=== PATIENT | male | born 1935 | race Caucasian/White ===

== ENCOUNTER 2019-05-04 13:05 | Inpatient (IN) | payer MEDICARE ==
[~2019-05-04] VITALS: Ht 170.2 cm; Wt 88.1 kg
--- NOTE | 2019-05-04 15:45 | NUR ---
Returned from CT at this time.
[2019-05-04] MEDS ORDERED: piperacillin/tazo 3.375gm/50ml 50 ML IV ONE (16:25)
[2019-05-04 17:22] LABS: BASOPHILS # (AUTO) 0.1 X10'3 (0-0.2); BASOPHILS % (AUTO) 0.6 % (0-1); EOSINOPHILS % (AUTO) 0.1 % (0-6); HEMATOCRIT 34.7 % (42.0-52.0); HEMOGLOBIN 10.8 g/dl (14.0-17.9); LYMPHOCYTES # (AUTO) 0.8 X10'3 (1.1-4.8); LYMPHOCYTES % (AUTO) 5.5 % (21-51); MEAN CORPUSCULAR HEMOGLOBIN 23.6 PG (27.0-31.0); MEAN PLATELET VOLUME 8.7 FL (7.4-10.4); MONOCYTES # (AUTO) 0.9 X10'3 (0-0.9); MONOCYTES % (AUTO) 6.7 % (2-12); NEUTROPHILS # (AUTO) 11.9 X10'3 (1.8-7.7); NEUTROPHILS % (AUTO) 87.1 % (42-75); PLATELET COUNT 373 X10'3 (140-440); RED BLOOD COUNT 4.56 X10'6 (4.70-6.10); RED CELL DISTRIBUTION WIDTH 18.3 % (11.5-14.5); WHITE BLOOD COUNT 13.7 X10'3 (4.5-11.0)
[2019-05-04 17:31] LABS: PARTIAL THROMBOPLASTIN TIME 27 SECONDS (22-32)
[2019-05-04 17:38] LABS: ALANINE AMINOTRANSFERASE 15 U/L (12-78); ALBUMIN 1.8 G/DL (3.4-5.0); ALBUMIN/GLOBULIN RATIO 0.4 (1.1-1.5); ALKALINE PHOSPHATASE 105 IU/L (46-116); ANION GAP 8 (8-16); ASPARTATE AMINO TRANSFERASE 12 U/L (10-37); BILIRUBIN,TOTAL 0.5 MG/DL (0.1-1.0); BLOOD UREA NITROGEN 18 MG/DL (7-18); CALCIUM 8.3 MG/DL (8.5-10.1); CHLORIDE 105 MMOL/L (99-107); CREATININE 1.06 MG/DL (0.60-1.10); GLUCOSE 116 MG/DL (70-104); POTASSIUM 4.8 MMOL/L (3.5-5.1); SODIUM 138 MMOL/L (135-145); TOTAL CARBON DIOXIDE 25.4 MMOL/L (24-32); TOTAL PROTEIN 6.1 G/DL (6.4-8.2); eGFR 67 ML/MIN
[2019-05-04] MEDS ORDERED: magnesium Cl slow-release 64mg tablet PO PRN (17:55)
[2019-05-04] MEDS ORDERED: magnesium 4gm in 100ml NS 100 ML IV PRN (17:55)
[2019-05-04] MEDS ORDERED: HYDROcodone/acetaminophen 10/325mg tab PO PRN (17:55)
[2019-05-04] MEDS ORDERED: metoclopramide 5 mg/ml inj IV PRN (17:55)
[2019-05-04] MEDS ORDERED: HYDROmorphone inj. 0.5 MG/0.5 ML DISP.SYRIN IV PRN (17:55)
[2019-05-04] MEDS ORDERED: magnesium 2GM in 50ml NS 50 ML IV PRN (17:55)
[2019-05-04] MEDS ORDERED: diphenhydrAMINE 50 mg/ml inj IV PRN (17:55)
[2019-05-04] MEDS ORDERED: HYDROmorphone 1 mg/ml syringe IV PRN (17:55)
[2019-05-04] MEDS ORDERED: diphenhydrAMINE 25mg capsule PO PRN (17:55)
[2019-05-04] MEDS ORDERED: potassium Cl 20 mEq SR tablet PO PRN ×2 (17:55)
[2019-05-04] MEDS ORDERED: magnesium hydroxide 30ml (MOM) UD suspension PO PRN (17:55)
[2019-05-04] MEDS ORDERED: potassium CL 10mEq/100ml bag 100 ML IV PRN ×2 (17:55)
[2019-05-04] MEDS ORDERED: HYDROcodone/acetaminophen 5mg/325mg tablet PO PRN (17:55)
[2019-05-04] MEDS ORDERED: acetaminophen 325mg tablet PO PRN ×2 (17:55)
[2019-05-04] MEDS ORDERED: bisacodyl 10mg suppository rectal RC PRN (17:55)
[2019-05-04 18:13] LABS: HYPOCHROMASIA 1+; PLATELET ESTIMATE NORMAL; POLYCHROMASIA FEW
[2019-05-04 18:14] LABS: ANISOCYTOSIS 2+; ELLIPTOCYTES FEW; MICROCYTOSIS 1+; TEAR DROP CELLS FEW
[2019-05-04] MEDS: normal saline 1000ml 1,000 ML IV SCH (18:29)
--- NOTE | 2019-05-04 19:35 | NUR ---
Received report from Gilbert DUMONT. Patient to follow shortly
--- NOTE | 2019-05-04 19:43 | NUR ---
Patient arrived to floor via gurney accompanied by family. Transferred over to bed and vital signs initiated.
[2019-05-04 19:45] VITALS: BP 131/96
[2019-05-04] MEDS ORDERED: SPIR25TA5 PO (21:02)
[2019-05-04] MEDS ORDERED: RANI150T8 PO (21:02)
[2019-05-04] MEDS ORDERED: PRED10TA23 PO (21:02)
[2019-05-04] MEDS ORDERED: VALS160T30 PO (21:02)
[2019-05-04] MEDS ORDERED: POTA10TA19 PO (21:02)
[2019-05-04] MEDS ORDERED: FLO0.4C PO (21:02)
[2019-05-04] MEDS ORDERED: TRAM50TA2 PO ×2 (21:02→23:05)
[2019-05-04] MEDS ORDERED: METF500T PO (21:02)
[2019-05-04] MEDS ORDERED: BACL10TA PO (21:02)
[2019-05-04] MEDS ORDERED: lidocaine 5% patch TD (21:39)
[2019-05-04] MEDS ORDERED: baclofen 10mg tablet PO ONE (23:10)
[2019-05-04] MEDS ORDERED: LIDOcaine 5% patch TP SCH (23:10)
[2019-05-04] MEDS ORDERED: naproxen sodium 220mg tablet PO PRN (23:10)
[2019-05-04] MEDS ORDERED: traMADol 50MG tablet PO ONE (23:10)
[2019-05-04] MEDS: piperacillin/tazo 3.375gm/50ml 50 ML IV SCH (23:51)
[2019-05-05] VITALS: BP 150/90
[2019-05-05] MEDS: normal saline 1000ml 1,000 ML IV SCH ×2 (02:42→15:07)
[2019-05-05 05:08] LABS: BASOPHILS % (AUTO) 0.3 % (0-1); EOSINOPHILS # (AUTO) 0.1 X10'3 (0-0.9); EOSINOPHILS % (AUTO) 0.9 % (0-6); HEMATOCRIT 33.8 % (42.0-52.0); HEMOGLOBIN 10.5 g/dl (14.0-17.9); LYMPHOCYTES # (AUTO) 0.8 X10'3 (1.1-4.8); MEAN CORPUSCULAR HEMOGLOBIN 23.5 PG (27.0-31.0); MEAN CORPUSCULAR VOLUME 75.9 FL (78-98); MEAN PLATELET VOLUME 8.7 FL (7.4-10.4); MONOCYTES # (AUTO) 1.2 X10'3 (0-0.9); MONOCYTES % (AUTO) 11.1 % (2-12); NEUTROPHILS % (AUTO) 80.7 % (42-75); PLATELET COUNT 362 X10'3 (140-440); RED BLOOD COUNT 4.45 X10'6 (4.70-6.10); RED CELL DISTRIBUTION WIDTH 18.5 % (11.5-14.5); WHITE BLOOD COUNT 11.2 X10'3 (4.5-11.0)
[2019-05-05 05:43] LABS: ALANINE AMINOTRANSFERASE 13 U/L (12-78); ALBUMIN 1.7 G/DL (3.4-5.0); ALBUMIN/GLOBULIN RATIO 0.4 (1.1-1.5); ALKALINE PHOSPHATASE 90 IU/L (46-116); ANION GAP 6 (8-16); ASPARTATE AMINO TRANSFERASE 11 U/L (10-37); BILIRUBIN,TOTAL 0.6 MG/DL (0.1-1.0); BLOOD UREA NITROGEN 15 MG/DL (7-18); BUN/CREATININE RATIO 15.6 (5.4-32.0); CALCIUM 8.1 MG/DL (8.5-10.1); CHLORIDE 107 MMOL/L (99-107); CREATININE 0.96 MG/DL (0.60-1.10); GLUCOSE 72 MG/DL (70-104); MAGNESIUM 1.6 MG/DL (1.5-2.4); POTASSIUM 4.1 MMOL/L (3.5-5.1); SODIUM 140 MMOL/L (135-145); TOTAL CARBON DIOXIDE 27.2 MMOL/L (24-32); TOTAL PROTEIN 5.7 G/DL (6.4-8.2); eGFR 75 ML/MIN
[2019-05-05 07:00] VITALS: BP 125/80
--- NOTE | 2019-05-05 07:04 | NUR ---
Problems reprioritized. Patient report given, questions answered & plan of care reviewed with Natali DUMONT and Pat DUMONT.
[2019-05-05] MEDS: K and/or MAG REPLACEMENT MC SCH (08:00)
[2019-05-05] MEDS: piperacillin/tazo 3.375gm/50ml 50 ML IV SCH ×2 (08:45→15:08)
[2019-05-05] MEDS: baclofen 10mg tablet PO SCH ×3 (08:46→20:21)
[2019-05-05 11:00] VITALS: BP 122/75
[2019-05-05] MEDS ORDERED: dextrose 50%-water 50ml dispensing syringe IV PRN ×2 (11:30)
[2019-05-05] MEDS ORDERED: dextrose ORAL solution 15 GM/59 ML bottle PO PRN ×2 (11:30)
[2019-05-05] MEDS ORDERED: glucagon, human recombinant 1mg kit SUBCUT PRN (11:30)
[2019-05-05] MEDS ORDERED: MESSAGE TO PHARMACY PO ONE (11:30)
[2019-05-05] MEDS: polyethylene glycol 3350 17gm powd pack PO SCH ×2 (12:27→20:20)
[2019-05-05] MEDS: potassium chloride 10mEq ER tablet PO SCH (12:28)
[2019-05-05] MEDS: docusate sod 100mg capsule PO SCH ×2 (12:28→20:19)
[2019-05-05] MEDS: pantoprazole 40mg Tablet.DR PO SCH (12:28)
[2019-05-05] MEDS: magnesium hydroxide 30ml (MOM) UD suspension PO SCH ×2 (12:29→20:19)
[2019-05-05] MEDS: spironolactone 25 MG tablet PO SCH (12:29)
--- NOTE | 2019-05-05 12:49 | NUR ---
Patient blood glucose level 70 before lunch, patient requested apple juice as intervention, will continue to monitor.
[2019-05-05 13:04] LABS: HEMOGLOBIN A1C 6.8 % (4.5-6.2)
[2019-05-05] MEDS ORDERED: NAPR220C15 PO (14:00)
[2019-05-05] MEDS ORDERED: OMEP20TA5 PO (14:00)
[2019-05-05] MEDS ORDERED: LIDOCAINE 5% PATCH TP (14:00)
[2019-05-05] MEDS ORDERED: TRAM50TA2 PO (14:02)
[2019-05-05] MEDS ORDERED: LACT1CAP65 PO (14:03)
--- NOTE | 2019-05-05 15:15 | NUR ---
Malnutrition consult: Pt and SO seen at bedside. 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 Diet has just been advanced to clear liquid from NPO, pending documentation of PO intake. Pt is unsure of what his UBW is and states he has lost greater than 15 lbs in an unknown time frame. No documented wt hx in EMR. Pt with mild edema however no decrease in muscle strength or visible fat/muscle wasting. Pt currently does not meet criteria for malnutrition at this time. Will continue to follow. Addendum: 05/05/19 at [address] Amended: Links added.
--- NOTE | 2019-05-05 18:17 | NUR ---
Problems reprioritized. Patient report given, questions answered & plan of care reviewed with TIM Braxton.
--- NOTE | 2019-05-05 18:30 | NUR ---
Patient in room [facility] 346. I have received report from Pat DUMONT and had the opportunity to ask questions and assume patient care.
[2019-05-05 20:00] VITALS: BP 118/72
[2019-05-05] MEDS: LIDOcaine 5% patch TP SCH (20:20)
[2019-05-05] MEDS: famotidine 20mg tablet PO SCH (20:21)
[2019-05-05] MEDS: losartan 50mg tablet PO SCH (20:24)
[2019-05-05] MEDS: insulin glargine (Lantus) pen - multi-dose SQ SCH (21:00)
[2019-05-06] VITALS: BP 139/76
[2019-05-06] MEDS: normal saline 1000ml 1,000 ML IV SCH ×2 (00:05→10:41)
[2019-05-06] MEDS: piperacillin/tazo 3.375gm/50ml 50 ML IV SCH ×3 (00:05→15:33)
[2019-05-06 05:17] LABS: BASOPHILS # (AUTO) 0.2 X10'3 (0-0.2); BASOPHILS % (AUTO) 1.4 % (0-1); EOSINOPHILS # (AUTO) 0.3 X10'3 (0-0.9); EOSINOPHILS % (AUTO) 2.3 % (0-6); HEMATOCRIT 36.5 % (42.0-52.0); HEMOGLOBIN 11.4 g/dl (14.0-17.9); LYMPHOCYTES # (AUTO) 1.3 X10'3 (1.1-4.8); LYMPHOCYTES % (AUTO) 11.1 % (21-51); MEAN CORPUSCULAR HEMOGLOBIN 23.4 PG (27.0-31.0); MEAN CORPUSCULAR HGB CONC 31.3 g/dL (33.0-36.5); MEAN CORPUSCULAR VOLUME 74.8 FL (78-98); MEAN PLATELET VOLUME 8.7 FL (7.4-10.4); MONOCYTES # (AUTO) 1.3 X10'3 (0-0.9); MONOCYTES % (AUTO) 10.9 % (2-12); NEUTROPHILS # (AUTO) 8.9 X10'3 (1.8-7.7); NEUTROPHILS % (AUTO) 74.3 % (42-75); PLATELET COUNT 386 X10'3 (140-440); RED BLOOD COUNT 4.88 X10'6 (4.70-6.10); RED CELL DISTRIBUTION WIDTH 18.1 % (11.5-14.5); WHITE BLOOD COUNT 11.9 X10'3 (4.5-11.0)
[2019-05-06 05:35] LABS: ALANINE AMINOTRANSFERASE 12 U/L (12-78); ALBUMIN 1.8 G/DL (3.4-5.0); ALBUMIN/GLOBULIN RATIO 0.4 (1.1-1.5); ALKALINE PHOSPHATASE 93 IU/L (46-116); ANION GAP 10 (8-16); ASPARTATE AMINO TRANSFERASE 12 U/L (10-37); BILIRUBIN,TOTAL 0.6 MG/DL (0.1-1.0); BLOOD UREA NITROGEN 11 MG/DL (7-18); BUN/CREATININE RATIO 10.8 (5.4-32.0); CALCIUM 7.9 MG/DL (8.5-10.1); CHLORIDE 106 MMOL/L (99-107); CREATININE 1.02 MG/DL (0.60-1.10); GLUCOSE 86 MG/DL (70-104); MAGNESIUM 1.8 MG/DL (1.5-2.4); POTASSIUM 4.4 MMOL/L (3.5-5.1); SODIUM 140 MMOL/L (135-145); TOTAL CARBON DIOXIDE 24.2 MMOL/L (24-32); TOTAL PROTEIN 6.1 G/DL (6.4-8.2); eGFR 70 ML/MIN
--- NOTE | 2019-05-06 06:30 | NUR ---
Problems reprioritized. Patient report given, questions answered & plan of care reviewed with Brianna Pandey.
[2019-05-06 08:00] VITALS: BP 155/77
[2019-05-06] MEDS: K and/or MAG REPLACEMENT MC SCH (08:00)
[2019-05-06] MEDS: pantoprazole 40mg Tablet.DR PO SCH (08:44)
[2019-05-06] MEDS: spironolactone 25 MG tablet PO SCH (08:44)
[2019-05-06] MEDS: docusate sod 100mg capsule PO SCH ×2 (08:45→20:00)
[2019-05-06] MEDS: tamsulosin 0.4mg capsule PO SCH (08:45)
[2019-05-06] MEDS: predniSONE 20 mg tablet PO SCH (08:45)
[2019-05-06] MEDS: potassium chloride 10mEq ER tablet PO SCH (08:45)
[2019-05-06] MEDS: baclofen 10mg tablet PO SCH ×3 (08:45→20:28)
[2019-05-06] MEDS: magnesium hydroxide 30ml (MOM) UD suspension PO SCH ×2 (08:46→20:00)
[2019-05-06 09:00] VITALS: BP 103/71
[2019-05-06] MEDS ORDERED: metoclopramide 5 mg/ml inj IV ONE (10:10)
[2019-05-06] MEDS ORDERED: magnesium citrate 296ml oral solution PO ONE (10:10)
[2019-05-06 12:00] VITALS: BP 126/76
--- NOTE | 2019-05-06 13:29 | NUR ---
pt refused mag citrate fro now. the reglan is working well. non adminned and will recheck in a few hours
[2019-05-06 13:54] VITALS: BP 126/76
[2019-05-06] MEDS: furosemide 40mg/4ml inj IV SCH (14:30)
--- NOTE | 2019-05-06 15:40 | NUR ---
DR GUZMAN ORDERED STRICT I&O'S ON THIS PT. EDUCATED PT ON THE NEED FOR THIS ORDER. PATIENT CONTINUES TO REFUSE TO USE A URINAL OR A HAT.
--- NOTE | 2019-05-06 18:23 | NUR ---
GAVE REPORT TO RHIANNON DUMONT
[2019-05-06 19:30] VITALS: BP 108/66
--- NOTE | 2019-05-06 19:30 | NUR ---
pt wrapped up in blankets stating he has swelling in his lower legs, which hasn't changed; pt sates he does not want to be uncovered to have legs checked Addendum: 05/07/19 at 0229 by Radha Miller RN Amended: Links added.
--- NOTE | 2019-05-06 19:30 | NUR ---
pt encouraged to use urinal so output could be monitored; states he is voiding in good amounts & does not want to use the urinal due to the difficulty in using it Addendum: 05/07/19 at 0229 by Radha Miller RN Amended: Links added.
--- NOTE | 2019-05-06 19:30 | NUR ---
pt states he uses o2 at 2 liter, NC "off & on" Addendum: 05/07/19 at 0229 by Radha Miller RN Amended: Links added.
[2019-05-06] MEDS: famotidine 20mg tablet PO SCH (20:26)
[2019-05-06] MEDS: LIDOcaine 5% patch TP SCH (20:26)
[2019-05-06] MEDS: lactobacillus rhamnosus 10,000 MMU CELLS/CAPSULE PO SCH (20:27)
[2019-05-06] MEDS: losartan 50mg tablet PO SCH (20:27)
[2019-05-06] MEDS: diatr meglu/diatrizoate 30ml oral sol.-(3 dose) bottle PO SCH (20:28)
[2019-05-06] MEDS: polyethylene glycol 3350 17gm powd pack PO SCH (20:31)
[2019-05-06] MEDS: insulin glargine (Lantus) pen - multi-dose SQ SCH (21:03)
[2019-05-06] MEDS: Melatonin 3mg tablet PO PRN (22:45)
[2019-05-07] VITALS (16 sets, daily range): BP systolic 126–188; BP diastolic 69–145
[2019-05-07] MEDS: piperacillin/tazo 3.375gm/50ml 50 ML IV SCH ×3 (00:23→16:00)
[2019-05-07 04:44] LABS: BASOPHILS # (AUTO) 0.1 X10'3 (0-0.2); EOSINOPHILS # (AUTO) 0.1 X10'3 (0-0.9); EOSINOPHILS % (AUTO) 0.9 % (0-6); HEMOGLOBIN 11.5 g/dl (14.0-17.9); LYMPHOCYTES # (AUTO) 1.5 X10'3 (1.1-4.8); LYMPHOCYTES % (AUTO) 10.2 % (21-51); MEAN CORPUSCULAR HEMOGLOBIN 23.2 PG (27.0-31.0); MEAN CORPUSCULAR HGB CONC 31.1 g/dL (33.0-36.5); MEAN CORPUSCULAR VOLUME 74.6 FL (78-98); MEAN PLATELET VOLUME 8.5 FL (7.4-10.4); MONOCYTES # (AUTO) 1.3 X10'3 (0-0.9); MONOCYTES % (AUTO) 8.9 % (2-12); NEUTROPHILS # (AUTO) 11.6 X10'3 (1.8-7.7); PLATELET COUNT 427 X10'3 (140-440); RED BLOOD COUNT 4.96 X10'6 (4.70-6.10); RED CELL DISTRIBUTION WIDTH 18.3 % (11.5-14.5); WHITE BLOOD COUNT 14.7 X10'3 (4.5-11.0)
[2019-05-07 04:50] LABS: ALANINE AMINOTRANSFERASE 13 U/L (12-78); ALBUMIN/GLOBULIN RATIO 0.4 (1.1-1.5); ALKALINE PHOSPHATASE 96 IU/L (46-116); ANION GAP 8 (8-16); ASPARTATE AMINO TRANSFERASE 11 U/L (10-37); BILIRUBIN,TOTAL 0.6 MG/DL (0.1-1.0); BLOOD UREA NITROGEN 12 MG/DL (7-18); BUN/CREATININE RATIO 9.7 (5.4-32.0); CALCIUM 8.8 MG/DL (8.5-10.1); CHLORIDE 107 MMOL/L (99-107); CREATININE 1.24 MG/DL (0.60-1.10); GLUCOSE 106 MG/DL (70-104); MAGNESIUM 2.2 MG/DL (1.5-2.4); POTASSIUM 4.1 MMOL/L (3.5-5.1); SODIUM 141 MMOL/L (135-145); TOTAL CARBON DIOXIDE 26.1 MMOL/L (24-32); TOTAL PROTEIN 6.5 G/DL (6.4-8.2); eGFR 56 ML/MIN
--- NOTE | 2019-05-07 06:53 | NUR ---
Patient in room [facility] 346. I have received report from PAT RN and had the opportunity to ask questions and assume patient care.
[2019-05-07] MEDS: diatr meglu/diatrizoate 30ml oral sol.-(3 dose) bottle PO SCH ×2 (07:59→10:04)
[2019-05-07] MEDS: docusate sod 100mg capsule PO SCH ×2 (08:00→20:00)
[2019-05-07] MEDS: potassium chloride 10mEq ER tablet PO SCH (08:00)
[2019-05-07] MEDS: baclofen 10mg tablet PO SCH ×3 (08:00→21:00)
[2019-05-07] MEDS: lactobacillus rhamnosus 10,000 MMU CELLS/CAPSULE PO SCH ×2 (08:00→20:00)
[2019-05-07] MEDS: pantoprazole 40mg Tablet.DR PO SCH (08:00)
[2019-05-07] MEDS: K and/or MAG REPLACEMENT MC SCH (08:00)
[2019-05-07] MEDS: tamsulosin 0.4mg capsule PO SCH (08:00)
[2019-05-07] MEDS: magnesium hydroxide 30ml (MOM) UD suspension PO SCH ×2 (08:01→22:29)
[2019-05-07] MEDS: predniSONE 20 mg tablet PO SCH (08:01)
[2019-05-07] MEDS: spironolactone 25 MG tablet PO SCH (08:01)
[2019-05-07] MEDS: furosemide 40mg/4ml inj IV SCH (08:02)
[2019-05-07] MEDS ORDERED: iohexol 300mg/ml 100ml inj. ONE (10:05)
[2019-05-07] MEDS: normal saline 1000ml 1,000 ML IV SCH (11:40)
--- NOTE | 2019-05-07 14:54 | NUR ---
Student documentation: I have reviewed all interventions, assessments performed and documented by Yesi IGLESIAS
[2019-05-07] MEDS ORDERED: clindamycin phosphate 150mg/ml inj. ONE (15:42)
[2019-05-07] MEDS ORDERED: gentamicin 40 MG/1 ML inj ONE (15:42)
[2019-05-07] MEDS ORDERED: LIDOcaine 1% (10mg/ml) 2ml vial ONE (16:19)
[2019-05-07] MEDS ORDERED: ringers solution, lacted 1,000 ML IV SCH (16:22)
[2019-05-07] MEDS ORDERED: ondansetron/PF 4mg/2ml inj IV PRN (16:25)
[2019-05-07] MEDS ORDERED: morphine 4 MG/ML inj SYRINge IV PRN ×2 (16:25)
[2019-05-07] MEDS ORDERED: proCHLORperazine 10 MG/2 ml inj IV PRN (16:25)
[2019-05-07] MEDS ORDERED: meperidine/PF 25mg/ml syringe IV PRN ×3 (16:25)
[2019-05-07] MEDS ORDERED: desflurane 240ml liquid inh. IH ONE (16:42)
[2019-05-07] MEDS ORDERED: neostigmine methylsulfate 1 MG/ML 10ml vial ONE (16:42)
[2019-05-07] MEDS ORDERED: glycopyrrolate 0.2mg/ml inj ONE (16:42)
[2019-05-07] MEDS ORDERED: midazolam 2 mg/2 ml injection ONE (16:49)
[2019-05-07] MEDS ORDERED: fentaNYL /PF 50mcg/ml 5ml ampule ONE (16:49)
--- NOTE | 2019-05-07 17:16 | NUR ---
Hourly checks and blood glucose monitoring deferred to community health nurse staff, patient was transported to surgery Addendum: 05/07/19 at 1718 by Yesi GO Amended: Links added.
[2019-05-07] MEDS ORDERED: LIDOcaine 2% (20mg/ml) 5ml vial ONE (18:02)
[2019-05-07] MEDS ORDERED: hydrocortisone sod succ/PF 100mg/2ml inj. ONE (18:02)
[2019-05-07] MEDS ORDERED: propofol inj 20 ML IV ONE (18:02)
[2019-05-07] MEDS ORDERED: rocuronium 10mg/ml inj IV ONE (18:02)
[2019-05-07] MEDS ORDERED: BUPIVAcaine/PF 2.5 mg/ml (0.25%) 30ml vial ONE (18:20)
[2019-05-07] MEDS ORDERED: BUPIVACAINE liposomal/PF 13.3 MG/ML vial IM ONE (18:21)
[2019-05-07] MEDS ORDERED: HYDROmorphone 1 mg/ml syringe IV PRN (18:45)
[2019-05-07] MEDS ORDERED: acetaminophen 1,000mg/100ml IV 100 ML IV ONE (19:00)
--- NOTE | 2019-05-07 19:12 | NUR ---
Received from OR via , accompanied by Anesthesiologist DR ACOSTA and report given by Anesthesiolgist.AWAKENS TO VOICE. VITALS STABLE. DRESSING DI. KARI PAIN. ABD SOFT. MATT WITH CLEAR URINE.
--- NOTE | 2019-05-07 19:40 | NUR ---
I have received report from Corey DUMONT, recovery room nurse and had the opportunity to ask questions and assume patient care. Awaiting PT arrival.
--- NOTE | 2019-05-07 19:42 | NUR ---
Report called to receiving nurse. Transferred via BED Belongings . Special Issues communicated to receiving nurse.AWAKE AND ORIENTED. VITALS STABLE. DRESSING DI STATES MIN DISCOMFORT. TO CICU RM 2011A AT THIS TIME.
[2019-05-07] MEDS: LIDOcaine 5% patch TP SCH (20:00)
--- NOTE | 2019-05-07 20:30 | NUR ---
PT arrived to via ICU bed. PT placed on bedside monitor. PT is receiving 3L O2 to NC, toelrating well, O2 sat >94%. PT has an Art line to RT radial, line zeroed and transduced to pressure tubing. PT has 20g PIV to LT forearm, with IVF infusing per MD orders. PT c/o pain, PRN Dilaudid given. PT has Drsg to Midline ABD and JUSTICE drain to RLQ. Drsgs are CDI. Rolle in place draining to gravity. Bed is locked and low. Call light is within reach. Will continue to monitor.
[2019-05-07] MEDS: hydrocortisone sod succ/PF 100mg/2ml inj. IV SCH (20:47)
[2019-05-07] MEDS: insulin glargine (Lantus) pen - multi-dose SQ SCH (21:00)
[2019-05-07] MEDS: famotidine 20mg tablet PO SCH (21:00)
[2019-05-07] MEDS: losartan 50mg tablet PO SCH (21:00)
[2019-05-07 22:02] LABS: BASOPHILS % (AUTO) 0.2 % (0-1); EOSINOPHILS % (AUTO) 0 % (0-6); HEMATOCRIT 37.4 % (42.0-52.0); HEMOGLOBIN 11.5 g/dl (14.0-17.9); LYMPHOCYTES # (AUTO) 0.3 X10'3 (1.1-4.8); LYMPHOCYTES % (AUTO) 2.2 % (21-51); MEAN CORPUSCULAR HEMOGLOBIN 23.4 PG (27.0-31.0); MEAN CORPUSCULAR HGB CONC 30.8 g/dL (33.0-36.5); MEAN PLATELET VOLUME 8.6 FL (7.4-10.4); MONOCYTES # (AUTO) 0.8 X10'3 (0-0.9); MONOCYTES % (AUTO) 5.1 % (2-12); NEUTROPHILS # (AUTO) 14.3 X10'3 (1.8-7.7); NEUTROPHILS % (AUTO) 92.5 % (42-75); PLATELET COUNT 375 X10'3 (140-440); RED BLOOD COUNT 4.93 X10'6 (4.70-6.10); RED CELL DISTRIBUTION WIDTH 18.4 % (11.5-14.5); WHITE BLOOD COUNT 15.4 X10'3 (4.5-11.0)
[2019-05-07 22:13] LABS: PARTIAL THROMBOPLASTIN TIME 26 SECONDS (22-32)
[2019-05-07 22:19] LABS: ALANINE AMINOTRANSFERASE 13 U/L (12-78); ALBUMIN 1.8 G/DL (3.4-5.0); ALBUMIN/GLOBULIN RATIO 0.4 (1.1-1.5); ALKALINE PHOSPHATASE 89 IU/L (46-116); ANION GAP 6 (8-16); ASPARTATE AMINO TRANSFERASE 14 U/L (10-37); BILIRUBIN,TOTAL 0.6 MG/DL (0.1-1.0); BLOOD UREA NITROGEN 12 MG/DL (7-18); BUN/CREATININE RATIO 10.2 (5.4-32.0); CALCIUM 7.8 MG/DL (8.5-10.1); CHLORIDE 106 MMOL/L (99-107); CREATININE 1.18 MG/DL (0.60-1.10); GLUCOSE 179 MG/DL (70-104); POTASSIUM 4.1 MMOL/L (3.5-5.1); SODIUM 138 MMOL/L (135-145); TOTAL CARBON DIOXIDE 26.1 MMOL/L (24-32); eGFR 59 ML/MIN
[2019-05-07] MEDS ORDERED: hydrALAZINE 20mg/ml inj. IV PRN (22:20)
--- NOTE | 2019-05-07 22:30 | NUR ---
PT resting off and on, each time PT does wake up he states "Pain" repeatedly. Dr Mendoza in Unit and informed him. Received order for Dialudid CADD. Will get started when orders clear. Will continue to monitor.
[2019-05-07] MEDS ORDERED: CADD PCA waste documentation MC SCH (23:10)
[2019-05-07] MEDS ORDERED: naloxone 0.4 mg/ml inj IV PRN (23:10)
[2019-05-07] MEDS: HYDROmorphone/NS 1 mg/ml CADD 50 ML IV SCH (23:24)
[2019-05-08] VITALS (24 sets, daily range): BP systolic 95–177; BP diastolic 72–125
--- NOTE | 2019-05-08 00:10 | NUR ---
During hourly rounds nursing assessed PT ABD Drsg and found that it has been picked at by PT and was lifting off of skin. New Drsg placed using sterile technique. PT tolerated well. Will continue to monitor.
[2019-05-08] MEDS: piperacillin/tazo 3.375gm/50ml 50 ML IV SCH ×4 (00:11→23:48)
[2019-05-08] MEDS: dextrose 5%-lactated ringers 1,000 ML IV SCH ×3 (00:12→21:16)
[2019-05-08] MEDS: HYDROmorphone/NS 1 mg/ml CADD 50 ML IV SCH ×12 (01:00→23:00)
[2019-05-08] MEDS: hydrocortisone sod succ/PF 100mg/2ml inj. IV SCH ×4 (02:26→21:14)
--- NOTE | 2019-05-08 03:00 | NUR ---
PT has been resting comfortably with no s/s of distress noted at this time. VSS. Dilaudid CADD has been effective. Bed is locked and low. Call light is within reach. Will continue to monitor.
[2019-05-08] MEDS: ondansetron/PF 4mg/2ml inj IV PRN (03:13)
[2019-05-08 03:35] LABS: BASOPHILS % (AUTO) 0.1 % (0-1); EOSINOPHILS % (AUTO) 0 % (0-6); HEMATOCRIT 37.4 % (42.0-52.0); HEMOGLOBIN 11.3 g/dl (14.0-17.9); LYMPHOCYTES # (AUTO) 0.4 X10'3 (1.1-4.8); LYMPHOCYTES % (AUTO) 1.7 % (21-51); MEAN CORPUSCULAR HEMOGLOBIN 23.1 PG (27.0-31.0); MEAN CORPUSCULAR HGB CONC 30.3 g/dL (33.0-36.5); MEAN CORPUSCULAR VOLUME 76.2 FL (78-98); MEAN PLATELET VOLUME 8.7 FL (7.4-10.4); MONOCYTES # (AUTO) 0.7 X10'3 (0-0.9); MONOCYTES % (AUTO) 3.3 % (2-12); NEUTROPHILS # (AUTO) 19.2 X10'3 (1.8-7.7); NEUTROPHILS % (AUTO) 94.9 % (42-75); PLATELET COUNT 362 X10'3 (140-440); RED CELL DISTRIBUTION WIDTH 18.4 % (11.5-14.5); WHITE BLOOD COUNT 20.3 X10'3 (4.5-11.0)
[2019-05-08 03:49] LABS: ALANINE AMINOTRANSFERASE 14 U/L (12-78); ALBUMIN 1.8 G/DL (3.4-5.0); ALBUMIN/GLOBULIN RATIO 0.5 (1.1-1.5); ALKALINE PHOSPHATASE 82 IU/L (46-116); ANION GAP 10 (8-16); ASPARTATE AMINO TRANSFERASE 12 U/L (10-37); BILIRUBIN,TOTAL 0.5 MG/DL (0.1-1.0); BLOOD UREA NITROGEN 13 MG/DL (7-18); BUN/CREATININE RATIO 11.8 (5.4-32.0); CALCIUM 7.8 MG/DL (8.5-10.1); CHLORIDE 106 MMOL/L (99-107); GLUCOSE 206 MG/DL (70-104); MAGNESIUM 2.2 MG/DL (1.5-2.4); POTASSIUM 4.6 MMOL/L (3.5-5.1); SODIUM 142 MMOL/L (135-145); TOTAL CARBON DIOXIDE 25.8 MMOL/L (24-32); TOTAL PROTEIN 5.7 G/DL (6.4-8.2); eGFR 64 ML/MIN
--- NOTE | 2019-05-08 06:37 | NUR ---
Problems reprioritized. Patient report given, questions answered & plan of care reviewed with Mariana DUMONT.
[2019-05-08] MEDS: normal saline 1000ml 1,000 ML IV SCH ×2 (07:40→21:00)
[2019-05-08] MEDS: K and/or MAG REPLACEMENT MC SCH (07:44)
[2019-05-08] MEDS: potassium chloride 10mEq ER tablet PO SCH (08:00)
[2019-05-08] MEDS: tamsulosin 0.4mg capsule PO SCH (08:00)
[2019-05-08] MEDS: docusate sod 100mg capsule PO SCH ×2 (08:00→20:00)
[2019-05-08] MEDS: spironolactone 25 MG tablet PO SCH (08:00)
[2019-05-08] MEDS: baclofen 10mg tablet PO SCH ×3 (08:00→21:14)
[2019-05-08] MEDS: lactobacillus rhamnosus 10,000 MMU CELLS/CAPSULE PO SCH ×2 (08:00→21:14)
[2019-05-08] MEDS ORDERED: prednisone 10mg tablet PO SCH ×2 (08:00)
[2019-05-08] MEDS ORDERED: furosemide 40mg/4ml inj IV SCH (08:00)
[2019-05-08] MEDS: magnesium hydroxide 30ml (MOM) UD suspension PO SCH ×2 (08:00→20:00)
[2019-05-08] MEDS: furosemide 20 MG/2 ML vial IV SCH (09:05)
--- NOTE | 2019-05-08 13:00 | NUR ---
per vicenta at the bedside, patient is to stay in ICU and continue NPO except for ice chips. I told Trishat patient is not passing gas but otherwise vitals have been great and he is doing well.
[2019-05-08] MEDS: fluconazole/NS 400mg/200ml bag 200 ML IV SCH (13:56)
--- NOTE | 2019-05-08 16:00 | NUR ---
Initial assessment: Pt was admitted to the hospital with the complaints of abd pain and constipation for 6 days; with LBM previously 04/28 however received bowel care and now LBM 05/06. patient has a history of asbestosis with end-stage lung disease with a lung capacity of about 23-25%,HTN, hyperlipidemia, diverticulosis as well as prostate cancer status post proton beam therapy per H&P. Pt was intubated for exploratory laparotomy, drain of abd abscess, and small bowel resection; however per MD notes pt is now extubated, doing ok. Pt was previously on full liquid diet with po intake of 50-75%, now NPO with NG tube for suction. Rec diet advance to heart healthy/carb controlled as medically indicated with A1C of 6.8 and elevated BG likely r/t chronic steroid use with no hx DM. Will keep monitor. Recs: 1. Advance diet to carb controlled/heart healthy as medically indicated 2. Routine bowel care 3. Weekly wt Addendum: 05/08/19 at [address] Amended: Links added. Addendum: 05/08/19 at [address] I have reviewed and agree with note by Felling Machine Operator. Kelsie Dawson RD
[2019-05-08] MEDS: insulin Lispro (HumaLOG) vial - multi-dose SQ SCH (16:02)
--- NOTE | 2019-05-08 18:30 | NUR ---
Patient in room CICU 2010. I have received report from ALL DUMONT and had the opportunity to ask questions and assume patient care.
--- NOTE | 2019-05-08 18:50 | NUR ---
gave report to oncoming nurse and when we went to assess the patient together, patient was acting very anxious. I went to show oncoming nurse the midline dressing and patient had been obviously messing with it and it was loose and coming off even though I had checked it and it was secure 1 hour prior. Patient began accusing us of not answering his light and "lying to him" not understanding how the call light or pain button worked suddenly. I started to explain to him everything again and he began screaming "I WANT TO SEE THE DOCTOR!!!". Patient appears very accused and this is a very sudden change in condition. We have been laughing and chatting all day and he has been alert and oriented.
--- NOTE | 2019-05-08 19:05 | NUR ---
devulcanizer charger sent out page to Dr Mendoza. he called back, informed him of pt dramatic change in behavior and screaming that he wants to see the surgeon, tachycardic in 130s. Klely said to call the system administrator for this. stated that NG can come out and we can give him ice chips, popsicles as he allows.
[2019-05-08] MEDS: LIDOcaine 5% patch TP SCH (20:11)
[2019-05-08] MEDS: insulin glargine (Lantus) pen - multi-dose SQ SCH (20:59)
[2019-05-08] MEDS: losartan 50mg tablet PO SCH (21:14)
[2019-05-08] MEDS: famotidine 20mg tablet PO SCH (21:14)
--- NOTE | 2019-05-08 21:56 | NUR ---
pt is calm and back to normal after his coming to visit. HR back down to the 90s. he was cooperative with his nighttime meds after tolerating sips of water. pt is now sleeping after his bed bath routine
[2019-05-09] VITALS (14 sets, daily range): BP systolic 128–156; BP diastolic 78–102
[2019-05-09] MEDS: HYDROmorphone/NS 1 mg/ml CADD 50 ML IV SCH ×12 (01:00→23:00)
[2019-05-09] MEDS: hydrocortisone sod succ/PF 100mg/2ml inj. IV SCH ×3 (02:16→20:18)
[2019-05-09] MEDS: dextrose 5%-lactated ringers 1,000 ML IV SCH ×2 (04:20→09:30)
[2019-05-09 06:06] LABS: BASOPHILS % (AUTO) 0 % (0-1); EOSINOPHILS % (AUTO) 0 % (0-6); HEMATOCRIT 35.7 % (42.0-52.0); HEMOGLOBIN 11.1 g/dl (14.0-17.9); LYMPHOCYTES # (AUTO) 0.3 X10'3 (1.1-4.8); LYMPHOCYTES % (AUTO) 2.1 % (21-51); MEAN CORPUSCULAR HEMOGLOBIN 23.8 PG (27.0-31.0); MEAN CORPUSCULAR HGB CONC 31.2 g/dL (33.0-36.5); MEAN CORPUSCULAR VOLUME 76.2 FL (78-98); MEAN PLATELET VOLUME 8.7 FL (7.4-10.4); MONOCYTES # (AUTO) 0.6 X10'3 (0-0.9); NEUTROPHILS # (AUTO) 15.3 X10'3 (1.8-7.7); NEUTROPHILS % (AUTO) 93.9 % (42-75); PLATELET COUNT 347 X10'3 (140-440); RED BLOOD COUNT 4.69 X10'6 (4.70-6.10); RED CELL DISTRIBUTION WIDTH 18.6 % (11.5-14.5); WHITE BLOOD COUNT 16.3 X10'3 (4.5-11.0)
[2019-05-09 06:19] LABS: ALANINE AMINOTRANSFERASE 12 U/L (12-78); ALBUMIN 1.7 G/DL (3.4-5.0); ALBUMIN/GLOBULIN RATIO 0.4 (1.1-1.5); ALKALINE PHOSPHATASE 74 IU/L (46-116); ANION GAP 4 (8-16); ASPARTATE AMINO TRANSFERASE 21 U/L (10-37); BILIRUBIN,TOTAL 0.5 MG/DL (0.1-1.0); BLOOD UREA NITROGEN 13 MG/DL (7-18); BUN/CREATININE RATIO 14.3 (5.4-32.0); CALCIUM 8.2 MG/DL (8.5-10.1); CHLORIDE 106 MMOL/L (99-107); CREATININE 0.91 MG/DL (0.60-1.10); GLUCOSE 156 MG/DL (70-104); POTASSIUM 4.2 MMOL/L (3.5-5.1); SODIUM 140 MMOL/L (135-145); TOTAL CARBON DIOXIDE 29.8 MMOL/L (24-32); TOTAL PROTEIN 5.7 G/DL (6.4-8.2); eGFR 80 ML/MIN
--- NOTE | 2019-05-09 06:23 | NUR ---
Problems reprioritized. Patient report given, questions answered & plan of care reviewed with CASIE DUMONT.
[2019-05-09 07:23] LABS: ANISOCYTOSIS 2+; PLATELET ESTIMATE NORMAL
[2019-05-09 07:24] LABS: BURR CELLS 1+; ELLIPTOCYTES FEW; POLYCHROMASIA FEW
[2019-05-09 07:25] LABS: HYPOCHROMASIA 1+; SCHISTOCYTES FEW
[2019-05-09] MEDS: K and/or MAG REPLACEMENT MC SCH (08:00)
[2019-05-09] MEDS: fluconazole/NS 400mg/200ml bag 200 ML IV SCH (08:02)
--- NOTE | 2019-05-09 08:22 | NUR ---
Dr. Mendoza at bedside and stated to remove packing in abd incision, keep pt NPO, ice chips ok, ambulate pt, and transfer to [facility].
[2019-05-09] MEDS: insulin Lispro (HumaLOG) vial - multi-dose SQ SCH (08:40)
[2019-05-09] MEDS: furosemide 20 MG/2 ML vial IV SCH (08:40)
[2019-05-09] MEDS: potassium chloride 10mEq ER tablet PO SCH (08:41)
[2019-05-09] MEDS: magnesium hydroxide 30ml (MOM) UD suspension PO SCH ×2 (08:41→20:00)
[2019-05-09] MEDS: tamsulosin 0.4mg capsule PO SCH (08:43)
[2019-05-09] MEDS: lactobacillus rhamnosus 10,000 MMU CELLS/CAPSULE PO SCH ×2 (08:43→20:16)
[2019-05-09] MEDS: docusate sod 100mg capsule PO SCH ×2 (08:43→20:16)
[2019-05-09] MEDS: spironolactone 25 MG tablet PO SCH (08:43)
[2019-05-09] MEDS: baclofen 10mg tablet PO SCH ×3 (08:49→20:16)
[2019-05-09] MEDS: piperacillin/tazo 3.375gm/50ml 50 ML IV SCH ×2 (09:30→16:56)
--- NOTE | 2019-05-09 11:55 | NUR ---
Iodiform gauze packing removed from abd incision. Site CDI. Dressing changed. Sat pt on side of bed for several minutes, pt tolerated well. Told by night RN pt had decreased urine output 20-40mL/hr. Pt previously reporting abdominal and bladder fullness. Once pt sat on edge of bed noticed 350 ml out of carl and pt reported relief of bladder fullness. Pain is tolerable with Dilaudid CADD. Bed bath performed. Pt to be transferred to [facility]. Report called to TIM Hurst for continuation of care.
--- NOTE | 2019-05-09 12:33 | NUR ---
Received report from TIM Santos. Patient arrived to floor with at bedside. no complaints.
--- NOTE | 2019-05-09 18:25 | NUR ---
Problems reprioritized. Patient report given, questions answered & plan of care reviewed with TIM Villalobos.
--- NOTE | 2019-05-09 18:26 | NUR ---
Patient in room [facility] 356. I have received report from Raeann DUMONT and had the opportunity to ask questions and assume patient care.
[2019-05-09] MEDS: losartan 50mg tablet PO SCH (20:16)
[2019-05-09] MEDS: famotidine 20mg tablet PO SCH (20:17)
[2019-05-09] MEDS: LIDOcaine 5% patch TP SCH (20:17)
[2019-05-09] MEDS: insulin glargine (Lantus) pen - multi-dose SQ SCH (21:00)
[2019-05-09] MEDS: normal saline 1000ml 1,000 ML IV SCH (23:40)
[2019-05-10] VITALS: BP 117/87
[2019-05-10] MEDS: HYDROmorphone/NS 1 mg/ml CADD 50 ML IV SCH ×5 (01:00→09:00)
[2019-05-10] MEDS: piperacillin/tazo 3.375gm/50ml 50 ML IV SCH ×4 (01:17→23:41)
[2019-05-10] MEDS: dextrose 5%-lactated ringers 1,000 ML IV SCH ×4 (01:20→23:30)
[2019-05-10] MEDS: hydrocortisone sod succ/PF 100mg/2ml inj. IV SCH ×4 (03:01→19:59)
--- NOTE | 2019-05-10 06:29 | NUR ---
Problems reprioritized. Patient report given, questions answered & plan of care reviewed with Neli DUMONT.
[2019-05-10 07:00] VITALS: BP 148/92
[2019-05-10] MEDS: fluconazole/NS 400mg/200ml bag 200 ML IV SCH (07:53)
[2019-05-10] MEDS: docusate sod 100mg capsule PO SCH ×2 (07:54→19:59)
[2019-05-10] MEDS: spironolactone 25 MG tablet PO SCH (07:54)
[2019-05-10] MEDS: baclofen 10mg tablet PO SCH ×3 (07:54→20:13)
[2019-05-10] MEDS: potassium chloride 10mEq ER tablet PO SCH (07:54)
[2019-05-10] MEDS: magnesium hydroxide 30ml (MOM) UD suspension PO SCH ×2 (07:55→19:59)
[2019-05-10] MEDS: lactobacillus rhamnosus 10,000 MMU CELLS/CAPSULE PO SCH ×2 (07:55→19:59)
[2019-05-10] MEDS: tamsulosin 0.4mg capsule PO SCH (07:55)
[2019-05-10] MEDS: enoxaparin 40mg/0.4ml syringe SUBCUT SCH (07:56)
[2019-05-10] MEDS: furosemide 20 MG/2 ML vial IV SCH (07:59)
[2019-05-10] MEDS: K and/or MAG REPLACEMENT MC SCH (08:00)
--- NOTE | 2019-05-10 08:35 | NUR ---
arrived on unit to deliver pt his home O2, stating the pt called her and requested it. stated, "He's exhausting us. I'm so tired. I'm just dropped it off and I'm leaving. Going to taoism. I'll be back later." Primary RN, Neli, notified.
--- NOTE | 2019-05-10 09:15 | NUR ---
No labs ordered this am
[2019-05-10 11:00] VITALS: BP 93/58
[2019-05-10] MEDS: ondansetron/PF 4mg/2ml inj IV PRN (11:04)
[2019-05-10 12:43] LABS: ALBUMIN 1.7 G/DL (3.4-5.0); ANION GAP 3 (8-16); BLOOD UREA NITROGEN 19 MG/DL (7-18); BUN/CREATININE RATIO 18.3 (5.4-32.0); CALCIUM 8.1 MG/DL (8.5-10.1); CHLORIDE 109 MMOL/L (99-107); CREATININE 1.04 MG/DL (0.60-1.10); GLUCOSE 189 MG/DL (70-104); POTASSIUM 3.9 MMOL/L (3.5-5.1); SODIUM 145 MMOL/L (135-145); TOTAL CARBON DIOXIDE 32.9 MMOL/L (24-32); eGFR 69 ML/MIN
--- NOTE | 2019-05-10 16:59 | NUR ---
Per Latanya Day ok to restart patient on diabetic protocol and patient needs to re- meet to start insulin.
--- NOTE | 2019-05-10 17:00 | NUR ---
Per Latanya Wade patient will be hospitalist patient in the am. I notified Latanya wade that Dr Mendoza would like to have the hospitalist order a PICC line and TPN tomorrow. Latanya will put in her notes for hospitalist to address in the am.
--- NOTE | 2019-05-10 18:26 | NUR ---
Problems reprioritized. Patient report given, questions answered & plan of care reviewed with Delta DUMONT.
[2019-05-10 18:50] VITALS: BP 144/87
[2019-05-10] MEDS: LIDOcaine 5% patch TP SCH (20:00)
[2019-05-10] MEDS: losartan 50mg tablet PO SCH (20:12)
[2019-05-10] MEDS: traMADol 50MG tablet PO PRN (20:13)
[2019-05-10] MEDS: famotidine 20mg tablet PO SCH (20:13)
[2019-05-10] MEDS: insulin glargine (Lantus) pen - multi-dose SQ SCH (21:00)
--- NOTE | 2019-05-10 23:00 | NUR ---
PT C/O EXCRUCIATING PAIN TO PENIS. I GAVE HIM DILAUDID 1 MG IVP FOR THIS. 30 MINUTES LATER HE STATED EITHER I NEEDED TO TAKE OUT HIS CATHETER OR HE WOULD. I DC'D THE MATT WITHOUT INCIDENT. PT STATED HIS PAIN WAS CUT IN HALF. I GAVE THE PATIENT A URINAL AND TOLD HIM TO TRY AND URINATE SOON HE FELT THE NEED.
[2019-05-10] MEDS: mag hydrox/Alum hydrox/simeth 30ml oral suspension PO PRN (23:43)
[2019-05-11] VITALS: BP 149/90
[2019-05-11] MEDS: hydrocortisone sod succ/PF 100mg/2ml inj. IV SCH ×4 (02:19→20:22)
[2019-05-11 06:30] VITALS: BP 145/89
--- NOTE | 2019-05-11 06:30 | NUR ---
Patient in room [facility] 356. I have received report from TIM Sorenson and had the opportunity to ask questions and assume patient care.
[2019-05-11 06:50] LABS: ALANINE AMINOTRANSFERASE 9 U/L (12-78); ALBUMIN 1.5 G/DL (3.4-5.0); ALBUMIN/GLOBULIN RATIO 0.5 (1.1-1.5); ALKALINE PHOSPHATASE 59 IU/L (46-116); ANION GAP 3 (8-16); ASPARTATE AMINO TRANSFERASE 14 U/L (10-37); BILIRUBIN,TOTAL 0.4 MG/DL (0.1-1.0); BLOOD UREA NITROGEN 19 MG/DL (7-18); BUN/CREATININE RATIO 21.3 (5.4-32.0); CALCIUM 7.5 MG/DL (8.5-10.1); CHLORIDE 110 MMOL/L (99-107); CREATININE 0.89 MG/DL (0.60-1.10); GLUCOSE 155 MG/DL (70-104); PHOSPHORUS 2.1 MG/DL (2.3-4.5); POTASSIUM 3.2 MMOL/L (3.5-5.1); PREALBUMIN 13.2 MG/DL (19-36); SODIUM 145 MMOL/L (135-145); TOTAL CARBON DIOXIDE 32.5 MMOL/L (24-32); TOTAL PROTEIN 4.7 G/DL (6.4-8.2); TRIGLYCERIDES 134 MG/DL (20-135); eGFR 82 ML/MIN
--- NOTE | 2019-05-11 07:00 | NUR ---
Patient in room [facility] 356. I have received report from Nataly and had the opportunity to ask questions and assume patient care. Addendum: 05/11/19 at 0702 by Linda GO TIM Ingram
--- NOTE | 2019-05-11 07:02 | NUR ---
Problems reprioritized. Patient report given, questions answered & plan of care reviewed with KARI. Addendum: 05/11/19 at 0702 by Huan Trinidad RN Amended: Links added.
[2019-05-11] MEDS ORDERED: magnesium 4gm in 100ml NS 100 ML IV PRN ×2 (07:15→11:00)
[2019-05-11] MEDS ORDERED: potassium Cl 20 mEq SR tablet PO PRN (07:15)
[2019-05-11] MEDS ORDERED: magnesium 2GM in 50ml NS 50 ML IV PRN ×2 (07:15→11:00)
[2019-05-11] MEDS ORDERED: magnesium Cl slow-release 64mg tablet PO PRN (07:15)
[2019-05-11] MEDS ORDERED: potassium CL 10mEq/100ml bag 100 ML IV PRN (07:15)
[2019-05-11] MEDS: magnesium hydroxide 30ml (MOM) UD suspension PO SCH ×2 (07:43→20:20)
[2019-05-11] MEDS: tamsulosin 0.4mg capsule PO SCH (07:43)
[2019-05-11] MEDS: baclofen 10mg tablet PO SCH ×3 (07:44→20:34)
[2019-05-11] MEDS: docusate sod 100mg capsule PO SCH ×2 (07:44→20:21)
[2019-05-11] MEDS: lactobacillus rhamnosus 10,000 MMU CELLS/CAPSULE PO SCH ×2 (07:44→20:20)
[2019-05-11] MEDS: spironolactone 25 MG tablet PO SCH (07:44)
[2019-05-11] MEDS: enoxaparin 40mg/0.4ml syringe SUBCUT SCH (07:45)
[2019-05-11] MEDS: fluconazole/NS 400mg/200ml bag 200 ML IV SCH (07:46)
[2019-05-11] MEDS: furosemide 20 MG/2 ML vial IV SCH (07:46)
[2019-05-11] MEDS: piperacillin/tazo 3.375gm/50ml 50 ML IV SCH ×3 (07:46→23:18)
[2019-05-11] MEDS: insulin Lispro (HumaLOG) vial - multi-dose SQ SCH (07:51)
[2019-05-11] MEDS: K and/or MAG REPLACEMENT MC SCH (07:55)
[2019-05-11] MEDS: potassium chloride 10mEq ER tablet PO SCH (08:00)
--- NOTE | 2019-05-11 09:15 | NUR ---
Student Medication Administration: For this medication-pass time frame, all medication were reviewed, dispensed, administered and documented per hospital policy by Linda nursing administrator.
[2019-05-11] MEDS: potassium Cl 20 mEq SR tablet PO PRN ×2 (09:21→14:14)
[2019-05-11] MEDS: ondansetron/PF 4mg/2ml inj IV PRN (09:22)
[2019-05-11] MEDS: dextrose 5%-lactated ringers 1,000 ML IV SCH ×2 (09:29→23:10)
--- NOTE | 2019-05-11 09:36 | NUR ---
TPN Consult: Pt s/p ex lap w/ small bowel resection for perforated viscous. Day 7 essentially no nutrition r/t post-op ileus and TPN to start today per MD. Pt pending PICC line today per RN. LBM 05/06; pt has reglan PRN order but never given and may benefit from opioid antagonist per MD approval given current pain management; IGOR d/w RN. TPN recs below; will monitor for signs of refeeding syndrome and PN tolerance. Recs using 85.1kg bed scale wt given current wt 89.9kg documented w/ consistent negative fluid balance on lasix. Recs: 1. TPN via PICC per MD using Clinimix E 12/03 2L bag @ 100ml/hr goal 2. Separate intralipid infusions to run Q12 daily using 180ml 20% intralipids at 15ml/hr 3. In total; to provide 2400ml fluid, 120g AA, 360g DEX(2.92mg/kg/min), and 1584 total non-protein kcals 4. monitor for signs of refeeding syndrome 5. routine bowel care; opioid antagonist per MD on pain management post-op 6. Advance diet as medically indicated to low-residue Addendum: 05/11/19 at [address] Amended: Links added.
[2019-05-11 11:30] VITALS: BP 132/84
[2019-05-11] MEDS ORDERED: Dextrose 10%-water IV solution 1,000 ML IV PRN (12:00)
--- NOTE | 2019-05-11 12:42 | NUR ---
Problems reprioritized. Patient report given, questions answered & plan of care reviewed with Nataly RN.
--- NOTE | 2019-05-11 12:44 | NUR ---
Student documentation: I have reviewed and agree with all interventions, assessments performed and documented by Linda, certified nursing assistant instructor.
[2019-05-11] MEDS ORDERED: Trace element-5 inj. 1 ML in AA 5%/cal/electrolyte-TPN/D15W 2,000 ML IV SCH (15:00)
--- NOTE | 2019-05-11 18:35 | NUR ---
Problems reprioritized. Patient report given, questions answered & plan of care reviewed with TIM Sorenson.
[2019-05-11 18:40] VITALS: BP 148/79
[2019-05-11] MEDS: LIDOcaine 5% patch TP SCH (20:21)
[2019-05-11] MEDS: losartan 50mg tablet PO SCH (20:34)
[2019-05-11] MEDS: fat emulsion IV bag 250 ML IV SCH (20:34)
[2019-05-11] MEDS: famotidine 20mg tablet PO SCH (20:34)
[2019-05-11] MEDS: traMADol 50MG tablet PO PRN (20:53)
[2019-05-11] MEDS: Melatonin 3mg tablet PO PRN (20:53)
[2019-05-11] MEDS: insulin glargine (Lantus) pen - multi-dose SQ SCH (21:00)
[2019-05-11] MEDS ORDERED: diphenhydrAMINE 50 mg/ml inj IV PRN (23:05)
[2019-05-12] VITALS: BP 139/75
[2019-05-12] MEDS: hydrocortisone sod succ/PF 100mg/2ml inj. IV SCH ×2 (02:07→08:49)
[2019-05-12 04:10] LABS: BASOPHILS % (AUTO) 0.3 % (0-1); EOSINOPHILS % (AUTO) 0.1 % (0-6); HEMATOCRIT 27.5 % (42.0-52.0); HEMOGLOBIN 8.6 g/dl (14.0-17.9); LYMPHOCYTES # (AUTO) 0.2 X10'3 (1.1-4.8); LYMPHOCYTES % (AUTO) 1.7 % (21-51); MEAN CORPUSCULAR HEMOGLOBIN 23.7 PG (27.0-31.0); MEAN CORPUSCULAR HGB CONC 31.1 g/dL (33.0-36.5); MEAN CORPUSCULAR VOLUME 76.1 FL (78-98); MEAN PLATELET VOLUME 8.4 FL (7.4-10.4); MONOCYTES # (AUTO) 0.6 X10'3 (0-0.9); MONOCYTES % (AUTO) 5.4 % (2-12); NEUTROPHILS # (AUTO) 10.9 X10'3 (1.8-7.7); NEUTROPHILS % (AUTO) 92.5 % (42-75); PLATELET COUNT 252 X10'3 (140-440); RED BLOOD COUNT 3.62 X10'6 (4.70-6.10); RED CELL DISTRIBUTION WIDTH 18.7 % (11.5-14.5); WHITE BLOOD COUNT 11.8 X10'3 (4.5-11.0)
[2019-05-12 04:35] LABS: ALANINE AMINOTRANSFERASE 17 U/L (12-78); ALBUMIN 1.5 G/DL (3.4-5.0); ALBUMIN/GLOBULIN RATIO 0.5 (1.1-1.5); ALKALINE PHOSPHATASE 81 IU/L (46-116); ANION GAP 1 (8-16); ASPARTATE AMINO TRANSFERASE 26 U/L (10-37); BILIRUBIN,TOTAL 0.5 MG/DL (0.1-1.0); BLOOD UREA NITROGEN 20 MG/DL (7-18); CALCIUM 7.4 MG/DL (8.5-10.1); CHLORIDE 110 MMOL/L (99-107); GLUCOSE 197 MG/DL (70-104); POTASSIUM 3.8 MMOL/L (3.5-5.1); PREALBUMIN 15.5 MG/DL (19-36); SODIUM 143 MMOL/L (135-145); TOTAL CARBON DIOXIDE 32.5 MMOL/L (24-32); TOTAL PROTEIN 4.7 G/DL (6.4-8.2); TRIGLYCERIDES 140 MG/DL (20-135); eGFR 72 ML/MIN
[2019-05-12 04:38] LABS: ANISOCYTOSIS 2+; HYPOCHROMASIA 1+; MICROCYTOSIS 1+; PLATELET ESTIMATE NORMAL
--- NOTE | 2019-05-12 06:10 | NUR ---
Patient in room [facility] 356. I have received report from TIM Sorenson and had the opportunity to ask questions and assume patient care.
--- NOTE | 2019-05-12 06:24 | NUR ---
Problems reprioritized. Patient report given, questions answered & plan of care reviewed with KARI. Addendum: 05/12/19 at 0624 by Huan Trinidad RN Amended: Links added.
[2019-05-12 06:30] VITALS: BP 137/88
[2019-05-12] MEDS: K and/or MAG REPLACEMENT MC SCH (06:55)
[2019-05-12] MEDS ORDERED: normal saline 1000ml 1,000 ML IV SCH (07:50)
[2019-05-12] MEDS: docusate sod 100mg capsule PO SCH ×2 (07:54→20:20)
[2019-05-12] MEDS: magnesium hydroxide 30ml (MOM) UD suspension PO SCH ×2 (07:55→20:00)
[2019-05-12] MEDS: tamsulosin 0.4mg capsule PO SCH (08:43)
[2019-05-12] MEDS: lactobacillus rhamnosus 10,000 MMU CELLS/CAPSULE PO SCH ×2 (08:43→20:20)
[2019-05-12] MEDS: potassium chloride 10mEq ER tablet PO SCH (08:43)
[2019-05-12] MEDS: baclofen 10mg tablet PO SCH ×3 (08:43→20:20)
[2019-05-12] MEDS: spironolactone 25 MG tablet PO SCH (08:43)
[2019-05-12] MEDS: enoxaparin 40mg/0.4ml syringe SUBCUT SCH (08:43)
[2019-05-12] MEDS: piperacillin/tazo 3.375gm/50ml 50 ML IV SCH ×3 (08:49→23:43)
[2019-05-12] MEDS: fluconazole/NS 400mg/200ml bag 200 ML IV SCH (08:49)
[2019-05-12] MEDS: furosemide 20 MG/2 ML vial IV SCH (08:49)
[2019-05-12] MEDS: insulin Lispro (HumaLOG) vial - multi-dose SQ SCH ×3 (10:00→20:32)
[2019-05-12 10:41] LABS: MAGNESIUM 2.9 MG/DL (1.5-2.4); PHOSPHORUS 2.3 MG/DL (2.3-4.5)
[2019-05-12] MEDS: fat emulsion IV bag 250 ML IV SCH (10:56)
[2019-05-12 11:00] VITALS: BP 152/85
[2019-05-12] MEDS: MVI, adult No.4 with vit. K 10 ML in dextrose 5% water 500ml 500 ML IV SCH ×2 (11:21)
[2019-05-12 11:57] VITALS: BP 145/83
--- NOTE | 2019-05-12 11:59 | NUR ---
Problems reprioritized. Patient report given, questions answered & plan of care reviewed with Nataly RN.
--- NOTE | 2019-05-12 12:08 | NUR ---
Student documentation: I have reviewed and agree with all interventions, assessments performed and documented by Linda, nursing faculty.
--- NOTE | 2019-05-12 12:08 | NUR ---
Student Medication Administration: For this medication-pass time frame, all medication were reviewed, dispensed, administered and documented per hospital policy by Linda advanced nursing professor.
[2019-05-12] MEDS: Trace element-5 inj. 1 ML in AA 5%/cal/electrolyte-TPN/D15W 2,000 ML IV SCH (16:49)
--- NOTE | 2019-05-12 18:50 | NUR ---
Problems reprioritized. Patient report given, questions answered & plan of care reviewed with TIM Regan.
[2019-05-12 20:00] VITALS: BP 146/73
[2019-05-12] MEDS: famotidine 20mg tablet PO SCH (20:19)
[2019-05-12] MEDS: LIDOcaine 5% patch TP SCH (20:19)
[2019-05-12] MEDS: losartan 50mg tablet PO SCH (20:20)
[2019-05-12] MEDS: insulin glargine (Lantus) pen - multi-dose SQ SCH (21:00)
[2019-05-13 00:08] VITALS: BP 117/62
[2019-05-13] MEDS: fat emulsion IV bag 250 ML IV SCH (05:22)
--- NOTE | 2019-05-13 06:44 | NUR ---
Problems reprioritized. Patient report given, questions answered & plan of care reviewed with Nicol DUMONT.
[2019-05-13 08:00] VITALS: BP 148/85
[2019-05-13] MEDS: K and/or MAG REPLACEMENT MC SCH (08:00)
[2019-05-13] MEDS: magnesium hydroxide 30ml (MOM) UD suspension PO SCH ×2 (08:00→20:00)
[2019-05-13] MEDS: fluconazole/NS 400mg/200ml bag 200 ML IV SCH (08:58)
[2019-05-13] MEDS: tamsulosin 0.4mg capsule PO SCH (09:26)
[2019-05-13] MEDS: spironolactone 25 MG tablet PO SCH (09:27)
[2019-05-13] MEDS: baclofen 10mg tablet PO SCH ×3 (09:27→20:35)
[2019-05-13] MEDS: predniSONE 20 mg tablet PO SCH (09:27)
[2019-05-13] MEDS: lactobacillus rhamnosus 10,000 MMU CELLS/CAPSULE PO SCH ×2 (09:27→20:35)
[2019-05-13] MEDS: potassium chloride 10mEq ER tablet PO SCH (09:27)
[2019-05-13] MEDS: traMADol 50MG tablet PO PRN (09:27)
[2019-05-13] MEDS: docusate sod 100mg capsule PO SCH ×2 (09:28→20:35)
[2019-05-13] MEDS: enoxaparin 40mg/0.4ml syringe SUBCUT SCH (09:28)
[2019-05-13] MEDS: MVI, adult No.4 with vit. K 10 ML in dextrose 5% water 500ml 500 ML IV SCH ×2 (10:00)
[2019-05-13] MEDS: Trace element-5 inj. 1 ML in AA 5%/cal/electrolyte-TPN/D15W 2,000 ML IV SCH (10:42)
[2019-05-13] MEDS: piperacillin/tazo 3.375gm/50ml 50 ML IV SCH ×2 (10:47→16:56)
[2019-05-13 11:00] VITALS: BP 126/75
[2019-05-13 13:34] LABS: BASOPHILS % (AUTO) 0.1 % (0-1); EOSINOPHILS # (AUTO) 0.2 X10'3 (0-0.9); EOSINOPHILS % (AUTO) 1.6 % (0-6); HEMATOCRIT 29.8 % (42.0-52.0); HEMOGLOBIN 9.3 g/dl (14.0-17.9); LYMPHOCYTES # (AUTO) 0.3 X10'3 (1.1-4.8); MEAN CORPUSCULAR HEMOGLOBIN 23.9 PG (27.0-31.0); MEAN CORPUSCULAR HGB CONC 31.1 g/dL (33.0-36.5); MEAN CORPUSCULAR VOLUME 76.8 FL (78-98); MEAN PLATELET VOLUME 8.4 FL (7.4-10.4); MONOCYTES # (AUTO) 0.6 X10'3 (0-0.9); NEUTROPHILS # (AUTO) 14.4 X10'3 (1.8-7.7); NEUTROPHILS % (AUTO) 92.3 % (42-75); PLATELET COUNT 242 X10'3 (140-440); RED BLOOD COUNT 3.88 X10'6 (4.70-6.10); WHITE BLOOD COUNT 15.6 X10'3 (4.5-11.0)
[2019-05-13 13:49] LABS: ALANINE AMINOTRANSFERASE 21 U/L (12-78); ALBUMIN 1.7 G/DL (3.4-5.0); ALBUMIN/GLOBULIN RATIO 0.5 (1.1-1.5); ALKALINE PHOSPHATASE 79 IU/L (46-116); ANION GAP 4 (8-16); ASPARTATE AMINO TRANSFERASE 22 U/L (10-37); BILIRUBIN,TOTAL 0.5 MG/DL (0.1-1.0); BLOOD UREA NITROGEN 20 MG/DL (7-18); BUN/CREATININE RATIO 24.1 (5.4-32.0); CALCIUM 7.3 MG/DL (8.5-10.1); CHLORIDE 105 MMOL/L (99-107); CREATININE 0.83 MG/DL (0.60-1.10); GLUCOSE 159 MG/DL (70-104); MAGNESIUM 1.8 MG/DL (1.5-2.4); SODIUM 139 MMOL/L (135-145); TOTAL CARBON DIOXIDE 30.3 MMOL/L (24-32); eGFR 89 ML/MIN
[2019-05-13 15:00] VITALS: BP 138/87
[2019-05-13 15:29] LABS: ANISOCYTOSIS 2+; BURR CELLS FEW; ELLIPTOCYTES FEW; MICROCYTOSIS 1+; PLATELET ESTIMATE NORMAL; POLYCHROMASIA FEW
[2019-05-13] MEDS: levoTHYROXINE 75mcg tablet PO SCH (15:30)
[2019-05-13] MEDS ORDERED: furosemide 20 MG/2 ML vial IV ONE (16:05)
--- NOTE | 2019-05-13 16:19 | NUR ---
F/u: Pt TPN weaning currently and advanced to regular diet now having BM's post-op per MD note. PO 50-75% full liquids as diet advances so far pending regular diet PO hx. multiple BM's documented past few days. Will monitor for PO diet tolerance and additional protein needs post-op. Recs: 1. Advance diet as medically indicated to low-residue 2. routine bowel care 3. monitor for additional protein needs pending further PO hx 4. wt per rx Addendum: 05/13/19 at [address] Amended: Links added.
--- NOTE | 2019-05-13 18:53 | NUR ---
Patient in room [facility] 356. I have received report from Nicol DUMONT and had the opportunity to ask questions and assume patient care.
--- NOTE | 2019-05-13 19:41 | NUR ---
Problems reprioritized. Patient report given, questions answered & plan of care reviewed with Juancarlos RN.
[2019-05-13 20:00] VITALS: BP 113/60
[2019-05-13] MEDS: insulin glargine (Lantus) pen - multi-dose SQ SCH (20:31)
[2019-05-13] MEDS: famotidine 20mg tablet PO SCH (20:35)
[2019-05-13] MEDS: losartan 50mg tablet PO SCH (20:35)
[2019-05-13] MEDS: LIDOcaine 5% patch TP SCH (20:39)
[2019-05-14] MEDS: piperacillin/tazo 3.375gm/50ml 50 ML IV SCH ×3 (00:28→17:25)
[2019-05-14 00:37] VITALS: BP 110/57
[2019-05-14] MEDS: traMADol 50MG tablet PO PRN (04:20)
[2019-05-14 05:02] LABS: BASOPHILS # (AUTO) 0.1 X10'3 (0-0.2); BASOPHILS % (AUTO) 0.7 % (0-1); EOSINOPHILS # (AUTO) 0.4 X10'3 (0-0.9); EOSINOPHILS % (AUTO) 3.1 % (0-6); HEMATOCRIT 29.1 % (42.0-52.0); LYMPHOCYTES # (AUTO) 0.6 X10'3 (1.1-4.8); LYMPHOCYTES % (AUTO) 4.6 % (21-51); MEAN CORPUSCULAR HEMOGLOBIN 23.7 PG (27.0-31.0); MEAN CORPUSCULAR HGB CONC 31.1 g/dL (33.0-36.5); MEAN CORPUSCULAR VOLUME 76.1 FL (78-98); MEAN PLATELET VOLUME 9.1 FL (7.4-10.4); MONOCYTES # (AUTO) 1.1 X10'3 (0-0.9); MONOCYTES % (AUTO) 7.9 % (2-12); NEUTROPHILS # (AUTO) 11.3 X10'3 (1.8-7.7); NEUTROPHILS % (AUTO) 83.7 % (42-75); PLATELET COUNT 253 X10'3 (140-440); RED BLOOD COUNT 3.82 X10'6 (4.70-6.10); WHITE BLOOD COUNT 13.5 X10'3 (4.5-11.0)
[2019-05-14 05:13] LABS: ALANINE AMINOTRANSFERASE 22 U/L (12-78); ALBUMIN 1.7 G/DL (3.4-5.0); ALBUMIN/GLOBULIN RATIO 0.5 (1.1-1.5); ALKALINE PHOSPHATASE 76 IU/L (46-116); ANION GAP 9 (8-16); ASPARTATE AMINO TRANSFERASE 17 U/L (10-37); BILIRUBIN,TOTAL 0.5 MG/DL (0.1-1.0); BLOOD UREA NITROGEN 18 MG/DL (7-18); BUN/CREATININE RATIO 20.7 (5.4-32.0); CALCIUM 7.3 MG/DL (8.5-10.1); CHLORIDE 107 MMOL/L (99-107); CREATININE 0.87 MG/DL (0.60-1.10); GLUCOSE 75 MG/DL (70-104); MAGNESIUM 1.9 MG/DL (1.5-2.4); PHOSPHORUS 2.8 MG/DL (2.3-4.5); POTASSIUM 3.4 MMOL/L (3.5-5.1); PREALBUMIN 17.8 MG/DL (19-36); SODIUM 145 MMOL/L (135-145); TOTAL PROTEIN 4.9 G/DL (6.4-8.2); TRIGLYCERIDES 159 MG/DL (20-135); eGFR 84 ML/MIN
[2019-05-14 06:21] LABS: ANISOCYTOSIS 2+; MICROCYTOSIS 1+; PLATELET ESTIMATE NORMAL
[2019-05-14 06:22] LABS: ELLIPTOCYTES 1+; POIKILOCYTOSIS 1+; POLYCHROMASIA 1+
--- NOTE | 2019-05-14 06:45 | NUR ---
Problems reprioritized. Patient report given, questions answered & plan of care reviewed with Zenaida DUMONT.
--- NOTE | 2019-05-14 06:57 | NUR ---
Patient in room [facility] 356. I have received report from TIM Regan and had the opportunity to ask questions and assume patient care.
[2019-05-14] MEDS ORDERED: levoTHYROXINE 75mcg tablet PO SCH (07:00)
[2019-05-14] MEDS: levoTHYROXINE 75mcg tablet PO SCH (07:32)
[2019-05-14 08:00] VITALS: BP 118/66
[2019-05-14] MEDS: K and/or MAG REPLACEMENT MC SCH (08:00)
[2019-05-14] MEDS: lactobacillus rhamnosus 10,000 MMU CELLS/CAPSULE PO SCH ×2 (09:03→20:00)
[2019-05-14] MEDS: tamsulosin 0.4mg capsule PO SCH (09:04)
[2019-05-14] MEDS: predniSONE 20 mg tablet PO SCH (09:04)
[2019-05-14] MEDS: baclofen 10mg tablet PO SCH ×3 (09:04→20:00)
[2019-05-14] MEDS: spironolactone 25 MG tablet PO SCH (09:05)
[2019-05-14] MEDS: magnesium hydroxide 30ml (MOM) UD suspension PO SCH (09:05)
[2019-05-14] MEDS: enoxaparin 40mg/0.4ml syringe SUBCUT SCH (09:06)
[2019-05-14] MEDS: docusate sod 100mg capsule PO SCH ×2 (09:06→20:00)
[2019-05-14] MEDS: potassium chloride 10mEq ER tablet PO SCH (09:07)
[2019-05-14] MEDS: fluconazole/NS 400mg/200ml bag 200 ML IV SCH (09:07)
[2019-05-14] MEDS ORDERED: LEVO75TA PO (09:22)
[2019-05-14] MEDS: MVI, adult No.4 with vit. K 10 ML in dextrose 5% water 500ml 500 ML IV SCH ×2 (10:00)
[2019-05-14 11:30] VITALS: BP 128/67
--- NOTE | 2019-05-14 16:16 | NUR ---
D/C'd PICC line per orders. Cannula intact. Held pressure for 5 minutes, placed 4x4 gauze folded covered with Tegaderm. Pt tolerated well.
[2019-05-14 18:00] VITALS: BP 106/58
--- NOTE | 2019-05-14 18:26 | NUR ---
Problems reprioritized. Patient report given, questions answered & plan of care reviewed with TIM Armendariz.
--- NOTE | 2019-05-14 18:38 | NUR ---
Student documentation: I have reviewed and agree with all interventions, assessments performed and documented by SN Kamille.
[2019-05-14] MEDS: LIDOcaine 5% patch TP SCH (20:00)
[2019-05-14] MEDS: losartan 50mg tablet PO SCH (21:00)
[2019-05-14] MEDS: famotidine 20mg tablet PO SCH (21:00)
[2019-05-14] MEDS: insulin glargine (Lantus) pen - multi-dose SQ SCH (21:00)
[2019-05-15] VITALS: BP 116/69
[2019-05-15] MEDS: piperacillin/tazo 3.375gm/50ml 50 ML IV SCH (00:13)
[2019-05-15 05:19] LABS: BASOPHILS # (AUTO) 0.1 X10'3 (0-0.2); BASOPHILS % (AUTO) 0.7 % (0-1); EOSINOPHILS # (AUTO) 0.4 X10'3 (0-0.9); HEMATOCRIT 29.4 % (42.0-52.0); HEMOGLOBIN 9.2 g/dl (14.0-17.9); LYMPHOCYTES # (AUTO) 0.6 X10'3 (1.1-4.8); LYMPHOCYTES % (AUTO) 5.3 % (21-51); MEAN CORPUSCULAR HEMOGLOBIN 23.9 PG (27.0-31.0); MEAN CORPUSCULAR HGB CONC 31.3 g/dL (33.0-36.5); MEAN CORPUSCULAR VOLUME 76.6 FL (78-98); MONOCYTES # (AUTO) 0.9 X10'3 (0-0.9); NEUTROPHILS # (AUTO) 10.4 X10'3 (1.8-7.7); PLATELET COUNT 238 X10'3 (140-440); RED BLOOD COUNT 3.84 X10'6 (4.70-6.10); RED CELL DISTRIBUTION WIDTH 19.6 % (11.5-14.5); WHITE BLOOD COUNT 12.3 X10'3 (4.5-11.0)
[2019-05-15 05:38] LABS: MAGNESIUM 1.9 MG/DL (1.5-2.4); POTASSIUM 3.7 MMOL/L (3.5-5.1)
[2019-05-15 06:18] LABS: ANISOCYTOSIS 2+; HYPOCHROMASIA 1+; MICROCYTOSIS 1+; PLATELET ESTIMATE NORMAL; POLYCHROMASIA 2+; TARGET CELLS FEW; TEAR DROP CELLS FEW
--- NOTE | 2019-05-15 06:31 | NUR ---
Problems reprioritized. Patient report given, questions answered & plan of care reviewed with Raeann DUMONT. Addendum: 05/15/19 at 0631 by Kala Howard RN Amended: Links added.
[2019-05-15] MEDS: levoTHYROXINE 75mcg tablet PO SCH (07:00)
[2019-05-15 07:10] VITALS: BP 148/67
[2019-05-15] MEDS: docusate sod 100mg capsule PO SCH ×2 (08:00→20:00)
[2019-05-15] MEDS: K and/or MAG REPLACEMENT MC SCH (08:00)
[2019-05-15] MEDS: metroNIDAZOLE 500mg tablet PO SCH ×2 (08:28→20:10)
[2019-05-15] MEDS: enoxaparin 40mg/0.4ml syringe SUBCUT SCH (08:28)
[2019-05-15] MEDS: lactobacillus rhamnosus 10,000 MMU CELLS/CAPSULE PO SCH ×2 (08:28→20:10)
[2019-05-15] MEDS: tamsulosin 0.4mg capsule PO SCH (08:28)
[2019-05-15] MEDS: spironolactone 25 MG tablet PO SCH (08:28)
[2019-05-15] MEDS: potassium chloride 10mEq ER tablet PO SCH (08:29)
[2019-05-15] MEDS: baclofen 10mg tablet PO SCH ×3 (08:29→20:11)
[2019-05-15] MEDS: predniSONE 20 mg tablet PO SCH (08:29)
--- NOTE | 2019-05-15 08:39 | NUR ---
Scanner on computer broken, medication checks completed before administration.
[2019-05-15] MEDS: MVI, adult No.4 with vit. K 10 ML in dextrose 5% water 500ml 500 ML IV SCH ×2 (10:00)
[2019-05-15 11:51] VITALS: BP 136/82
[2019-05-15] MEDS: levoFLOXACIN 500mg tablet PO SCH (12:35)
[2019-05-15 18:00] VITALS: BP 112/72
--- NOTE | 2019-05-15 18:24 | NUR ---
Problems reprioritized. Patient report given, questions answered & plan of care reviewed with TIM Armendariz.
[2019-05-15] MEDS: LIDOcaine 5% patch TP SCH (20:07)
[2019-05-15] MEDS: traMADol 50MG tablet PO PRN (20:09)
[2019-05-15] MEDS: losartan 50mg tablet PO SCH (20:09)
[2019-05-15] MEDS: famotidine 20mg tablet PO SCH (20:11)
[2019-05-16] VITALS: BP 111/69
[2019-05-16] MEDS: traMADol 50MG tablet PO PRN (02:37)
[2019-05-16 05:27] LABS: BASOPHILS % (AUTO) 0.4 % (0-1); EOSINOPHILS # (AUTO) 0.3 X10'3 (0-0.9); EOSINOPHILS % (AUTO) 2.5 % (0-6); HEMATOCRIT 27.8 % (42.0-52.0); HEMOGLOBIN 8.7 g/dl (14.0-17.9); LYMPHOCYTES # (AUTO) 0.9 X10'3 (1.1-4.8); LYMPHOCYTES % (AUTO) 8.1 % (21-51); MEAN CORPUSCULAR HEMOGLOBIN 24.2 PG (27.0-31.0); MEAN CORPUSCULAR HGB CONC 31.3 g/dL (33.0-36.5); MEAN CORPUSCULAR VOLUME 77.2 FL (78-98); MEAN PLATELET VOLUME 9.2 FL (7.4-10.4); MONOCYTES # (AUTO) 0.9 X10'3 (0-0.9); MONOCYTES % (AUTO) 8.3 % (2-12); NEUTROPHILS # (AUTO) 8.7 X10'3 (1.8-7.7); NEUTROPHILS % (AUTO) 80.7 % (42-75); PLATELET COUNT 241 X10'3 (140-440); RED CELL DISTRIBUTION WIDTH 19.5 % (11.5-14.5); WHITE BLOOD COUNT 10.8 X10'3 (4.5-11.0)
[2019-05-16 05:40] LABS: MAGNESIUM 1.9 MG/DL (1.5-2.4); POTASSIUM 3.5 MMOL/L (3.5-5.1)
[2019-05-16 07:20] VITALS: BP 134/84
[2019-05-16 07:36] LABS: ANISOCYTOSIS 2+; ELLIPTOCYTES FEW; LARGE PLATELETS FEW; MICROCYTOSIS 1+; PLATELET ESTIMATE NORMAL; POIKILOCYTOSIS FEW; POLYCHROMASIA FEW
[2019-05-16 07:37] LABS: HYPOCHROMASIA 1+
[2019-05-16] MEDS: potassium chloride 10mEq ER tablet PO SCH (07:43)
[2019-05-16] MEDS: baclofen 10mg tablet PO SCH ×2 (07:43→12:34)
[2019-05-16] MEDS: spironolactone 25 MG tablet PO SCH (07:43)
[2019-05-16] MEDS: metroNIDAZOLE 500mg tablet PO SCH (07:43)
[2019-05-16] MEDS: lactobacillus rhamnosus 10,000 MMU CELLS/CAPSULE PO SCH (07:43)
[2019-05-16] MEDS: predniSONE 20 mg tablet PO SCH (07:44)
[2019-05-16] MEDS: levoTHYROXINE 75mcg tablet PO SCH (07:44)
[2019-05-16] MEDS: tamsulosin 0.4mg capsule PO SCH (07:44)
[2019-05-16] MEDS: enoxaparin 40mg/0.4ml syringe SUBCUT SCH (07:44)
[2019-05-16] MEDS: K and/or MAG REPLACEMENT MC SCH (07:47)
[2019-05-16] MEDS: docusate sod 100mg capsule PO SCH (07:47)
[2019-05-16 11:09] VITALS: BP_SYST 103; BP_SYST 94; BP_SYST 95; BP_DIAS 55; BP_DIAS 58; BP_DIAS 62
[2019-05-16 11:41] VITALS: BP 119/75
[2019-05-16] MEDS: levoFLOXACIN 500mg tablet PO SCH (12:34)
[2019-05-16] MEDS: mag hydrox/Alum hydrox/simeth 30ml oral suspension PO PRN (12:37)
--- NOTE | 2019-05-16 15:52 | NUR ---
Patient stable and appropriate for transfer to [facility]. [employer]aris cargo picked patient up. IV removed. Report called to Rona at [facility]. all belongings taken from room. at bedside and will be following patient to [facility].
== END 2019-05-16 14:50 | DRG 329 ==
LOC: ER 13:06 → ED HOLD 18:01 → SUR 3N 19:41 → CICU 2S 05-07 18:44 → SUR 3N 05-09 13:00
PROVIDERS: ADMIT Family Medicine; ATTEND Internal Medicine
PROC: 0DNN0ZZ Release Sigmoid Colon, Open Approach (ICD-10-PCS; 2019-05-07)
PROC: 0DN80ZZ Release Small Intestine, Open Approach (ICD-10-PCS; 2019-05-07)
PROC: 0W9G0ZZ Drainage of Peritoneal Cavity, Open Approach (ICD-10-PCS; 2019-05-07)
PROC: 3E0T3BZ Introduction of Anesthetic Agent into Peripheral Nerves and Plexi, Percutaneous Approach (ICD-10-PCS; 2019-05-07)
PROC: 0DB80ZZ Excision of Small Intestine, Open Approach (ICD-10-PCS; principal; 2019-05-07 16:42)
PROC: 02HV33Z Insertion of Infusion Device into Superior Vena Cava, Percutaneous Approach (ICD-10-PCS; 2019-05-11)
PROC: 4A02X4A Measurement of Cardiac Electrical Activity, Guidance, External Approach (ICD-10-PCS; 2019-05-11)
PROC: B548ZZA Ultrasonography of Superior Vena Cava, Guidance (ICD-10-PCS; 2019-05-11)
DX: K57.00 Diverticulitis of small intestine with perforation and abscess without bleeding (principal); K65.0 Generalized (acute) peritonitis; K56.7 Ileus, unspecified; N13.8 Other obstructive and reflux uropathy; K56.609 Unspecified intestinal obstruction, unspecified as to partial versus complete obstruction; J61 Pneumoconiosis due to asbestos and other mineral fibers; D50.0 Iron deficiency anemia secondary to blood loss (chronic); D89.9 Disorder involving the immune mechanism, unspecified; E03.9 Hypothyroidism, unspecified; E11.9 Type 2 diabetes mellitus without complications; E78.5 Hyperlipidemia, unspecified; J44.9 Chronic obstructive pulmonary disease, unspecified; J98.4 Other disorders of lung; I10 Essential (primary) hypertension; E87.6 Hypokalemia; K21.9 Gastro-esophageal reflux disease without esophagitis; N40.1 Benign prostatic hyperplasia with lower urinary tract symptoms; G89.29 Other chronic pain; M54.9 Dorsalgia, unspecified; Z66 Do not resuscitate; Z79.52 Long term (current) use of systemic steroids; Z85.46 Personal history of malignant neoplasm of prostate; Z88.8 Allergy status to other drugs, medicaments and biological substances; Z92.3 Personal history of irradiation; Z99.81 Dependence on supplemental oxygen; Z79.84 Long term (current) use of oral hypoglycemic drugs
CPT/HCPCS: 36415; 36569; 71045; 74018; 74176; 74177; 76937; 80048; 80053; 82948; 83036; 83605; 83735; 84100; 84132; 84134; 84145; 84439; 84443; 84478; 85025; 85610; 85730; 87040; 87081; 88307; 93306; 96365; 97110; 97112; 97116; 97161; 97530; 97535; 99285; A4215; A4618; A6253; A6258; A6407; A6449; A7000; C1758; C9290; G0378; J0131; J0360; J1170; J1200; J1450; J1580; J1650; J1720; J1815; J1940; J2001; J2250; J2405; J2543; J2704; J2710; J2765; J3010; J3490; J7030; J7040; J7060; J7120; J7121; J7512; Q9963; Q9967